=== PATIENT | female | born 1970 | race Caucasian/White ===

== ENCOUNTER 2017-02-25 17:19 | Emergency (ER) | payer OTHER ==
[~2017-02-25] VITALS: Ht 172.7 cm; Wt 66.1 kg
[2017-02-25 17:32] VITALS: BP 140/67; PULSE 82; RESP 18; TEMP 99.1; O2SAT 100
--- NOTE | 2017-02-25 17:36 | PD ---
HPI Chief Complaint: Injury Time Seen by Provider: 17:30 Travel History International Travel<30 days: No Contact w/Intl Traveler<30days: No Traveled to known affect area: No History of Present Illness HPI She complains of left foot pain after injury. While playing volleyball, another player's knee landed on top of her left foot. She developed pain and bruising. Symptoms severity is moderate. Worse with weightbearing. PFSH Social History Alcohol Use: No Tobacco Use: No Substance Use: No Allergies-Medications (Allergen,Severity, Reaction): Coded Allergies: No Known Allergies (Unverified , 02/25/17) Review of Systems General / Constitutional: No: Fever HENT: No: Headaches Cardiovascular: No: Chest Pain or Discomfort Respiratory: No: Cough Physical Exam Narrative Left foot: Distal lateral forefoot is tender and bruised and swollen. No open wound. Neurovascularly intact SKIN: Focused skin assessment reveals no rash or ulcers. Skin is warm and dry. Palpation shows no induration or nodules. Psych: Normal mood and affect. Normal insight and judgment. Data Data Last Documented VS Vital Signs Date Time Temp Pulse Resp B/P (MAP) Pulse Ox O2 Delivery O2 Flow Rate FiO2 02/25/17 17:32 99.1 82 18 140/67 (91) 100 Orders Orders Foot, Complete ([id number]) (02/25/17 ) Crutches (02/25/17 17:36) MDM Medical Decision Making Medical Screen Exam Complete: Yes Emergency Medical Condition: Yes Medical Record Reviewed: Yes Differential Diagnosis Foot fracture, contusion, abrasion Narrative Course I have reviewed the patient's electronic medical record. I reviewed her left foot x-rays which are normal other than soft tissue swelling Ice and elevate and use crutches and hope for spontaneous resolution Diagnosis Primary Impression: Contusion of left foot, initial encounter Additional Instructions: Ice and elevate left foot Use crutches as needed for a couple of days Med/Other Pt SpecificInfo: Other Disposition: 01 DISCHARGE HOME Condition: Stable Fredy Ramirez MD Feb 25, 2017 17:36
--- NOTE | 2017-02-25 18:05 | RADRPT ---
EXAM DATE/TIME: 02/25/2017 17:47 [facility] COMPARISON: No previous studies available for comparison. INDICATIONS : Playing volley ball and another player fell onto foot with his knee MEDICAL HISTORY : None. SURGICAL HISTORY : None. ENCOUNTER: Initial ACUITY: 1 day PAIN SCORE: 7/10 LOCATION: Left foot FINDINGS: Three view examination of the left foot demonstrates no acute fracture or malalignment. There is mild soft tissue swelling over the fifth metatarsal. The tarsal bones appear intact. The interphalangeal and metatarsophalangeal joints are intact. The calcaneus is intact. Bony mineralization is normal. CONCLUSION: Mild soft tissue swelling with no acute fracture or malalignment. James Barry MD on February 25, 2017 at 18:00 Board Certified Radiologist. This report was verified electronically.
== END 2017-02-25 18:19 | disposition home or self-care (01) ==
LOC: PHEFT 17:19
DX: S90.32XA Contusion of left foot, initial encounter (principal); W51.XXXA Accidental striking against or bumped into by another person, initial encounter; Y93.68 Activity, volleyball (beach) (court)
CPT/HCPCS: 73630; 99283; E0113

== ENCOUNTER → 2017-05-04 | Outpatient (CLI) | payer OTHER ==
[~2017-05-04] MED LIST: MELO15TA20 PO
[2017-05-04 13:30] LABS: BACTERIA, URINE RARE /hpf; BLOOD, URINE NEG (NEG); GLUCOSE,URINE NEG (NEG); KETONE, URINE NEG (NEG); MUCUS URINE FEW /lpf (OCC); NITRITE,URINE NEG (NEG); SQUAMOUS EPITHELIAL CELL URINE 4 /hpf (0-5); URINE COLOR YELLOW (YELLW/STRAW)
[2017-05-04 13:33] LABS: AUTOMATED NEUTROPHIL # 1.6 TH/MM3 (1.8-7.7); BASOPHIL % 1.1 % (0.0-2.0); EOSINOPHIL # 0.1 TH/MM3 (0-0.4); EOSINOPHIL % 2.7 % (0.0-4.0); HEMATOCRIT 39.9 % (35.0-46.0); HEMO FLAGS DIFF FINAL; LYMPHOCYTE # 1.2 TH/MM3 (1.0-4.8); MEAN CELL VOLUME 89.2 FL (80.0-100.0); MEAN CORPUSCULAR HEMOGLOBIN 30.2 PG (27.0-34.0); MEAN CORPUSCULAR HGB CONC 33.8 % (32.0-36.0); MONO % 11.2 % (0.0-8.0); PLATELET COUNT 179 TH/MM3 (150-450); RED BLOOD COUNT 4.47 MIL/MM3 (4.00-5.30); RED CELL DISTRIBUTION WIDTH 12.8 % (11.6-17.2); WHITE BLOOD COUNT 3.3 TH/MM3 (4.0-11.0)
[2017-05-04 14:09] LABS: ANION GAP 5 MEQ/L (5-15); AST (GOT) 17 U/L (15-37); BICARBONATE 28.7 MEQ/L (21.0-32.0); BLOOD UREA NITROGEN 19 MG/DL (7-18); CHLORIDE 104 MEQ/L (98-107); GLOMERULAR FILTRATION RATE 70 ML/MIN (>89); GLUCOSE,FASTING 81 MG/DL (74-99); POTASSIUM 4.2 MEQ/L (3.5-5.1); SODIUM (NA) 138 MEQ/L (136-145)
[2017-05-04 14:23] LABS: ALKALINE PHOSPHATASE 60 U/L (45-117); ALT (GPT) 21 U/L (10-53); HDL CHOLESTEROL 93.4 MG/DL (40.0-60.0); LDL CHOLESTEROL 93 MG/DL (0-99); LDL CHOLESTEROL DIRECT 103 MG/DL (0-99)
== END ==
LOC: PLAB 08:07
PROVIDERS: ATTEND Family Medicine
DX: Z00.00 Encounter for general adult medical examination without abnormal findings (principal)
CPT/HCPCS: 36415; 80053; 80061; 81001; 83721; 84443; 85025

== ENCOUNTER → 2017-08-28 | Outpatient (CLI) | payer OTHER ==
[2017-08-30 19:51] LABS: HSV IGM IFA NEGATIVE; HSV2 IGM IFA NEGATIVE
== END ==
LOC: PLAB 11:43
PROVIDERS: ATTEND Obstetrics & Gynecology
DX: Z11.3 Encounter for screening for infections with a predominantly sexual mode of transmission (principal)
CPT/HCPCS: 36415; 80074; 86592; 86695; 86696; 86703